=== PATIENT | male | born 1975 | race Caucasian/White ===

== ENCOUNTER → 2023-12-08 12:28 | Outpatient (REF) | payer BC, SELFPAY | LOC: RAD 12:28 | PROVIDERS: ATTENDING PHYSICIAN Student in an Organized Health Care Education/Training Program | DX: K62.89 Other specified diseases of anus and rectum (principal); R10.30 Lower abdominal pain, unspecified | CPT/HCPCS: 74177; Q9967 ==

== ENCOUNTER → 2025-06-04 13:33 | Outpatient (REF) | payer BC, SELFPAY | LOC: HWRAD 13:33 | PROVIDERS: ATTENDING PHYSICIAN Student in an Organized Health Care Education/Training Program | DX: Z87.442 Personal history of urinary calculi (principal); R10.9 Unspecified abdominal pain | CPT/HCPCS: 74176 ==